=== PATIENT | male | born 1980 | race Caucasian/White ===

== ENCOUNTER 2018-02-22 19:07 | Emergency (ER) | payer BC ==
[2018-02-22] MEDS ORDERED: Sodium Chloride 0.9% 1,000 ML IV STA (19:53)
[2018-02-22] MEDS ORDERED: Dexamethasone 4 mg/1 ml IVP STA (19:53)
[2018-02-22] MEDS ORDERED: Sodium Chloride 0.9% 1,000 ML ONE (20:02)
[2018-02-22 20:04] LABS: BASO % 0.4 % (0.0-2.0); EOS # 0.1 K/uL (0.0-0.7); EOS % 1.2 % (0.0-4.0); HEMOGLOBIN 14.3 g/dL (12.0-18.0); LYMPH # 2.3 K/uL (1.0-4.3); LYMPH % 22.6 % (20.0-40.0); MEAN CORPUSCULAR HEMOGLOBIN 30.9 pg (27.0-31.0); MEAN CORPUSCULAR HGB CONC 34.7 g/dL (33.0-37.0); MEAN PLATELET VOLUME 7.9 fL (7.2-11.7); MONO # 0.9 K/uL (0.0-0.8); MONO % 8.5 % (0.0-10.0); NEUT # 6.9 K/uL (1.8-7.0); NEUT % 67.3 % (50.0-75.0); NRBC % 0.2 % (0.0-2.0); RBC 4.65 Mil/uL (4.40-5.90); RED CELL DISTRIBUTION WIDTH 12.6 % (11.5-14.5); WHITE BLOOD COUNT 10.2 K/uL (4.8-10.8)
[2018-02-22] MEDS ORDERED: Iodixanol 320 MG/ML 100 ML BOTTLE IV ONE (20:17)
[2018-02-22 20:18] LABS: ALB/GLOB RATIO 1.5 (1.0-2.1); ALBUMIN 4.7 g/dL (3.5-5.0); ALT/SGPT 23 U/L (21-72); AST/SGOT 22 U/L (17-59); BLOOD UREA NITROGEN 12 mg/dL (9-20); CALCIUM 9.8 mg/dl (8.6-10.4); GFR NON-AFRICAN AMERICAN > 60
--- NOTE | 2018-02-22 21:45 | C.PDOC ---
History Of Present Illness 37 y/o male is sent to ED from urgent care for CT scan to rule out abscess in his throat. Pt states he went to urgent care 3 days ago, was given Augmentin for throat pain, but states he did not feel better. Pt notes he went to urgent care again today and was instructed to report to ER for further evaluation. Notes he has sharp pain in his throat when swallowing. Otherwise, denies fever, chills, shortness of breath, or any other complaints at this time. Time Seen by Provider: 02/22/18 19:26 Chief Complaint (Nursing): ENT Problem History Per: Patient History/Exam Limitations: None Onset/Duration Of Symptoms: Days Current Symptoms Are (Timing): Still Present Quality (Mouth/Throat): Tenderness Past Medical History Reviewed: Historical Data, Nursing Documentation, Vital Signs Vital Signs: Last Vital Signs Temp 99.2 F 02/22/18 19:19 Pulse 98 H 02/22/18 19:19 Resp 18 02/22/18 19:19 BP 131/90 02/22/18 19:19 Pulse Ox 99 02/22/18 19:19 Family History: States: Unknown Family Hx - Social History Hx Alcohol Use: Yes Hx Substance Use: No Review Of Systems Except As Marked, All Systems Reviewed And Found Negative. Constitutional: Negative for: Fever, Chills ENT: Positive for: Throat Pain. Negative for: Nose Discharge, Nose Congestion Respiratory: Negative for: Cough, Shortness of Breath Physical Exam - Physical Exam Appears: Non-toxic, No Acute Distress Skin: Normal Color, Warm, Dry Head: Atraumatic, Normacephalic Eye(s): bilateral: Normal Inspection Ear(s): Bilateral: Normal Nose: Normal Oral Mucosa: Moist Tongue: Normal Appearing Lips: Normal Appearing Throat: Erythema, No Exudate, No Drooling, Other (uvula moved to left side; swelling noted to left side of pharynx) Neck: Normal ROM, Supple Cardiovascular: Rhythm Regular Respiratory: Normal Breath Sounds, No Rales, No Rhonchi, No Wheezing Extremity: Normal ROM Neurological/Psych: Oriented x3, Normal Speech ED Course And Treatment - Laboratory Results Result Diagrams: 02/22/18 19:54 02/22/18 19:54 O2 Sat by Pulse Oximetry: 99 (RA) Pulse Ox Interpretation: Normal - CT Scan/US CT neck Other Rad Studies (CT/US): Read By Radiologist, Radiology Report Reviewed CT/US Interpretation: Name:JULIETA ALANIZ Exam Date:Feb 22, 2018 9:25:58 PM EDT. Modality Type:CT. Description:CT - NECK WITH CORONAL AND SAGITTAL MPRS. Gender:M Laterality:Not applicable. :82 Referring Physician:Lisa Reyez (AJ). EXAM: CT Neck with Intravenous Contrast. CLINICAL HISTORY: LEFT PERITONILLAR ABCESS. TECHNIQUE: Axial computed tomography images of the neck with intravenous contrast. Sagittal and coronal reformatted images were generated. CONTRAST: With; 100MLS VISI 320. COMPARISON: None provided. FINDINGS: PHARYNX: There is extensive soft tissue swelling and A calcificationiin the left tonsillar region. The mass effect results in at least a 40% decrease in the oropharynx diameter. LARYNX: Normal appearance of the larynx. Unremarkable epiglottis. RETROPHARYNGEAL SPACE: No retropharyngeal soft tissue swelling or gas. SALIVARY GLANDS: No salivary gland abnormality evident. Unremarkable appearance of the parotid, submandibular, and sublingual glands. LYMPH NODES: No significant lymphadenopathy. THYROID: The thyroid gland is unremarkable. No nodule is evident. BONES: No acute osseous abnormality. No aggressive appearing osseous lesion. IMPRESSION: There is extensive soft tissue swelling and A calcificationiin the left tonsillar region. The mass effect results in at least a 40% decrease in the oropharynx diameter. . Electronically signed on Feb 22, 2018 9:54:12 PM EDT by: Xavier Chu M.D., Certified by [facility] Progress Note: Blood work, UA, rapid strep, neck and soft tissue CT scan ordered and reviewed. Pt was given Toradol, Decadron, and IV fluids. Against Medical Advice - AMA Patient Left Against Medical Advice: The patient declines admission to the hospital and wishes to leave the Emergency Department. This action is against my medical advice. This decision was made with informed refusal. The patient was told that admission to the hospital is necessary. Explanation of the reasons why were discussed. The risks of leaving were explained to the patient and include, but are not limited to, worsening of known or currently unknown conditions, permanent disability and from undiagnosed or untreated conditions. The patient has the capacity to make this informed decision and understands my explanation of the current medical problem and risks of leaving. The patient voluntarily accepts these risks and signed an AMA form documenting our conversation. The patient was given the opportunity to ask questions and reconsider. The patient was encouraged to return to the Emergency Department at any time for further care. Medical Decision Making Medical Decision Making: Dr. Campbell was called, requested the patient to be admitted and will see him tomorrow in the morning. Patient refused admission stating he had a toddler at home to take care of, patient was told about the risks and complications that could occur with him leaving the hospital and declining admission. 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 Patient states he will come to the Hospital tomorrow in the morning to be evaluated again. Disposition - Disposition Referrals: Marko Campbell MD [Staff Provider] - Disposition: AGAINST MEDICAL ADVICE Disposition Time: 19:45 Condition: FAIR Additional Instructions: Followup with ENT specialist MARCO A. Return to ED immediately if feel worse. Return to ED if you change your mind about an admission. 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 - Scribe Statement The provider has reviewed the documentation as recorded by the Scribe KP All medical record entries made by the Scribe were at my direction and personally dictated by me. I have reviewed the chart and agree that the record accurately reflects my personal performance of the history, physical exam, medical decision making, and the department course for this patient. I have also personally directed, reviewed, and agree with the discharge instructions and disposition.
[2018-02-22 22:39] VITALS: BP 128/79; PULSE 84; RESP 16; TEMP 97.9
[2018-02-23 03:23] VITALS: O2SAT 99
--- NOTE | 2018-02-23 13:27 | CT ---
Date of service: 02/22/2018. PROCEDURE: CT NECK WITH CONTRAST. HISTORY: Questionable left peritonillar abscess COMPARISON: None available.. TECHNIQUE: CT of the neck with intravenous contrast. Coronal and sagittal reformats generated. Intravenous contrast dose: 100 cc Visipaque 320 Radiation dose: Total exam DLP = 413.86 mGy-cm. This CT exam was performed using one or more of the following dose reduction techniques: Automated exposure control, adjustment of the mA and/or kV according to patient size, and/or use of iterative reconstruction technique.. FINDINGS: The current study reveals asymmetric enlargement of the left palatine tonsil with a vague round/elliptical shaped area of low attenuation that measures approximately 5.3 x 5.0 mm located just lateral to a prominent approximately 4.6 mm left palatine tonsillith (see axial series 2 image # [id number]).. There is another small elliptical shaped area of low attenuation slightly more inferiorly located measuring approximately 11.6 x 2.6 mm (see axial series 2, image number [id number]) . These foci could represent small early peritonsillar fluid/abscess collections.. Clinical correlation recommended. There is a 2nd small tonsillith slightly more anterior and superior as well as medially located. The left-sided enlarged palatine tonsil encroaches medially reducing the airway. There appears to be some prominence of the mucosa at the left base of tongue/tonsillar pillar narrowing the tonsillar fossa. Follow-up of CT scan recommended following treatment to assess resolution and exclude the possibility of concomitant mucosal lesion including but not limited to squamous cell carcinoma. There is also there is also a tiny right-sided palatine tonsillith. NASOPHARYNX: Unremarkable. SUPRAHYOID NECK: . There is mild asymmetry of the vallecula possibly due to some encroachment of lingual tonsils as well as some residual and or retained secretion. Free margin of the epiglottis unremarkable. There is mild asymmetry of the pyriform sinuses left-side of which is smaller than the right-side possibly due to mild enlargement of the left palatine tonsil.. INFRAHYOID NECK: Unremarkable larynx, hypopharynx, and supraglottic space. Vocal cords intact. MASS: See above. GLANDS: Parotid and submandibular glands unremarkable. Normal size thyroid gland, without nodule. LYMPH NODES: There are multiple relatively small on with a few medium-sized bilateral level 2 lymph nodes the largest in the jugulodigastric regions on the left side measuring approximately 13.5 mm 5 and on the right approximately 11.3 mm.. CERVICAL SPINE: No fracture or focal lesion. VASCULAR STRUCTURES: Unremarkable. OTHER FINDINGS: Apparent changes of bilateral cataract surgery however clinical correlation recommended. Note made of mild biapical pleural thickening and adjacent parenchymal scarring. IMPRESSION: Enlargement of the left palatine tonsil with a vague round/elliptical shaped area of low attenuation that measures approximately 5.3 x 5.0 mm located just lateral to a prominent approximately 4.6 mm left palatine tonsillith. There is another small elliptical shaped area of low attenuation slightly more inferiorly located measuring approximately 11.6 x 2.6 mm. These foci could represent small early peritonsillar fluid/abscess collections.. Clinical correlation recommended... The left-sided enlarged palatine tonsil encroaches medially reducing the airway.. There appears to be some prominence of the mucosa the left base of tongue/tonsillar pillar narrowing the tonsillar fossa. Follow-up CT scan recommended following treatment to assess resolution and exclude the possibility of concomitant mucosal lesion including but not limited to squamous cell carcinoma. See above discussion for additional details and findings. Note that this report was placed in [facility] review folder for follow up
== END 2018-02-22 22:38 | disposition left against medical advice (07) ==
LOC: C.ER 19:07
DX: J36 Peritonsillar abscess (principal)
CPT/HCPCS: 70491; 80053; 85025; 87040; 87430; 96361; 96374; 96375; 99283; J1100; J1885; J7030; Q9967